=== PATIENT | female | born 1980 | race African-American/Black ===

== ENCOUNTER 2020-11-28 10:20 | Emergency (ER) | payer OTHER ==
[~2020-11-28] VITALS: Ht 165.1 cm; Wt 127.3 kg
[~2020-11-28 10:20] MED LIST: ACCU-CHEK AVIVA PLUS XX; ADVAIR DISK2 IN; ALBUTEROL S2.5 MG/.5 IN; ALBUTEROL SUL0.083 %; ALBUTEROL0.5 % IN; ALLERGY10 M1 PO; AMOXICILLIN/CL875 MG PO; ATIVAN0.5 MG PO; AUGMENTIN875TAB PO; BELVIQ10 MG; BENZONATATE200 MG PO; BUSPAR10 M1 PO; CIPRO XR500 MG PO; CLARITIN10 M2 PO; CYMBALTA60 MG PO; FLEXERIL PO; FLONASE NASAL50 MCG; FLOVENT HFA110 MCG IN; FLOVENT HFA220 MCG IN; GLUCOMETER; GLUCOMETER SC; INSULIN SC; LEVEMIR SC; LEVEMIR1000 UNITS SC; LISINOPRIL10 MG PO; LORTAB5 OR; LOVASTATIN10 M1 PO; LYRICA100 MG PO; LYRICA150 MG PO; MEDDOSEPAK PO; MIRALAX3350 NF PO; MOTRIN800 MG/TAB PO; NAPROSYN500 MG OR; NEXIUM40 M1 PO; NOVOLOG100 IU/1 M SC; NYSTATIN100000 M1 PO; PATANASE0.6 %; POLYTRIM OS; PRILOSEC40 MG PO; PROAIR HFA IN; SINGULAIR10 MG PO; TESSALON PER100 MG PO; THYROID MEDICATION; UNKNOWN ALLERGY MED; VENTOLIN HF1 IN; VENTOLIN HFA IN; ZESTRIL/PRINIV2.5 MG PO; ZESTRIL5 M1 PO; nebulizer tubing
[2020-11-28 11:44] LABS: IMMATURE GRANULOCYTES 0.2 % (0.0-5.0); MEAN CORPUSCULAR HGB 21.4 pG CALC (26.0-32.0); NEUT# 2.53 thou/uL (2.00-7.15); RED BLOOD COUNT 4.68 mill/uL (4.20-5.60); RED CELL DISTRI WIDTH 18.2 % (11.5-15.5)
[2020-11-28 11:46] LABS: HEMATOCRIT 33.3 % (37.0-47.0); MEAN CELL VOLUME 71.2 fL CALC (80.0-100.0)
[2020-11-28 11:55] LABS: ALBUMIN 3.9 g/dL (3.2-5.0); ALKALINE PHOSPHATASE 73 u/l (38-126); AMYLASE 101 u/l (30-110); ANION GAP 13 (6-22 (CALC)); BILIRUBIN, TOTAL 0.3 mg/dL (0.0-1.4); BUN 11 mg/dL (7-17); BUN/CREATININE RATIO 15 (12-20 (CALC)); CARBON DIOXIDE 23 mmol/l (22-30); CHLORIDE 106 mmol/l (95-108); CREATININE 0.8 mg/dL (0.5-1.0); ETHYL ALCOHOL 0 mg/dl (0-30); GFR > 60 ML/MIN (>=60 (CALC)); GFR FOR AFR.AMER. > 60 ML/MIN (>=60 (CALC)); LIPASE 28 u/l (23-300); POTASSIUM 4.3 mmol/l (3.5-5.1); SGOT/AST 27 u/l (14-36); SODIUM 138 mmol/l (137-146); TOTAL PROTEIN 7.9 g/dL (6.3-8.2)
[2020-11-28] MEDS ORDERED: PATANASE0.6 % (12:19)
[2020-11-28 13:31] LABS: URINE BILIRUBIN - DIPSTICK NEGATIVE (NEGATIVE); URINE BLOOD DIPSTICK NEGATIVE (NEGATIVE); URINE COLOR YELLOW; URINE GLUCOSE - DIPSTICK NEGATIVE (NEGATIVE); URINE KETONE NEGATIVE (NEGATIVE); URINE LEUK ESTERASE NEGATIVE (NEGATIVE); URINE NITRITE - DIPSTICK NEGATIVE (Negative); URINE PROTEIN - DIPSTICK NEGATIVE (NEG-TRACE)
[2020-11-28 14:21] VITALS: BP 177/62
[2020-11-28] MEDS ORDERED: XANAX0.25 MG PO (14:48)
[2020-12-27] MEDS ORDERED: DULOXETINE HCL30 MG PO (15:26)
[2020-12-27] MEDS ORDERED: INDERAL10 M1 PO (15:27)
[2020-12-27] MEDS ORDERED: LYRICA150 MG PO (15:42)
== END 2020-11-28 15:10 | disposition home or self-care (01) ==
LOC: ED 10:20
DX: F41.9 Anxiety disorder, unspecified (principal); R07.9 Chest pain, unspecified; E11.9 Type 2 diabetes mellitus without complications; I10 Essential (primary) hypertension; Z20.822 Contact with and (suspected) exposure to COVID-19
CPT/HCPCS: J2060

== ENCOUNTER 2021-07-04 19:04 | Emergency (ER) | payer OTHER ==
[~2021-07-04] VITALS: Ht 165.1 cm; Wt 118.0 kg
[~2021-07-04 19:04] MED LIST changes: +DULOXETINE HCL30 MG PO; +INDERAL10 M1 PO; +XANAX0.25 MG PO
[2021-07-04] MEDS ORDERED: THYROID MED (21:51)
[2021-07-04] MEDS ORDERED: ALLERGY MED (21:51)
[2021-07-04 23:22] VITALS: BP 121/74
== END 2021-07-04 23:22 | disposition home or self-care (01) ==
LOC: ED 19:04
DX: S00.12XA Contusion of left eyelid and periocular area, initial encounter (principal); I10 Essential (primary) hypertension; E11.9 Type 2 diabetes mellitus without complications; F41.9 Anxiety disorder, unspecified; E66.9 Obesity, unspecified; W22.09XA Striking against other stationary object, initial encounter; Y93.89 Activity, other specified; Y92.512 Supermarket, store or market as the place of occurrence of the external cause; Z98.84 Bariatric surgery status

== ENCOUNTER 2021-11-11 06:32 | Emergency (ER) | payer OTHER ==
[~2021-11-11] VITALS: Ht 165.1 cm; Wt 118.0 kg
[2021-11-11] VITALS (7 sets, daily range): BP systolic 111–122; BP diastolic 64–70
[~2021-11-11 06:32] MED LIST changes: +ALLERGY MED; +THYROID MED
[2021-11-11 07:28] LABS: URINE BILIRUBIN - DIPSTICK NEGATIVE (NEGATIVE); URINE BLOOD DIPSTICK NEGATIVE (NEGATIVE); URINE COLOR YELLOW; URINE GLUCOSE - DIPSTICK NEGATIVE (NEGATIVE); URINE KETONE NEGATIVE (NEGATIVE); URINE LEUK ESTERASE NEGATIVE (NEGATIVE); URINE PH 5.5 (4.5-8.0); URINE PROTEIN - DIPSTICK NEGATIVE (NEG-TRACE); URINE SPECIFIC GRAVITY 1.025; URINE UROBILINOGEN - DIPSTICK 0.2 E.U./dL (0.2)
[2021-11-11 07:28] LABS: HEMATOCRIT 32.3 % (37.0-47.0); HEMOGLOBIN 9.2 g/dl (12.0-16.0); IMMATURE GRANULOCYTES 0.3 % (0.0-5.0); MEAN CELL VOLUME 71.3 fL CALC (80.0-100.0); MEAN CORPUSCULAR HGB 20.3 pG CALC (26.0-32.0); MEAN CORPUSCULAR HGB CONC 28.5 g/dL CAL (32.0-36.0); NEUT# 4.57 thou/uL (2.00-7.15); RED BLOOD COUNT 4.53 mill/uL (4.20-5.60)
[2021-11-11 07:38] LABS: ALBUMIN 3.9 g/dL (3.2-5.0); ALKALINE PHOSPHATASE 77 u/l (38-126); ANION GAP 12 (6-22 (CALC)); BUN 12 mg/dL (7-17); BUN/CREATININE RATIO 16 (12-20 (CALC)); CARBON DIOXIDE 19 mmol/l (22-30); CHLORIDE 107 mmol/l (95-108); CREATININE 0.7 mg/dL (0.5-1.0); GFR FOR AFR.AMER. > 60 ML/MIN (>=60 (CALC)); GFR OTHER RACES > 60 ML/MIN (>=60 (CALC)); MAGNESIUM 1.7 mg/dL (1.6-2.3); SGOT/AST 28 u/l (14-36); SODIUM 134 mmol/l (137-146); TOTAL PROTEIN 7.5 g/dL (6.3-8.2)
[2021-11-11 07:39] LABS: URINE NITRITE - DIPSTICK NEGATIVE (Negative)
[2021-11-11 07:39] LABS: BILIRUBIN, TOTAL 0.8 mg/dL (0.0-1.4)
[2021-11-11 07:50] LABS: MYOGLOBIN 44 ng/mL (0 - 62)
[2021-11-11 08:08] LABS: TSH, 3RD GENERATION 0.41 uIU/mL (0.47 - 4.68)
[2021-11-11] MEDS ORDERED: ULTRAM50 M1 PO (08:46)
== END 2021-11-11 09:19 | disposition home or self-care (01) ==
LOC: ED 06:32
PROVIDERS: Family Medicine
DX: R51.9 Headache, unspecified (principal); M79.10 Myalgia, unspecified site; I10 Essential (primary) hypertension; E11.9 Type 2 diabetes mellitus without complications; F41.9 Anxiety disorder, unspecified; E66.9 Obesity, unspecified

== ENCOUNTER 2023-05-08 20:10 | Emergency (ER) | payer OTHER ==
[~2023-05-08] VITALS: Ht 165.1 cm; Wt 145.0 kg
[2023-05-08] VITALS (8 sets, daily range): BP systolic 122–162; BP diastolic 65–93
[~2023-05-08 20:10] MED LIST changes: +AMOCLAN400 MG/5 M PO; +MOTRIN, CH100 MG/5 M PO; +ULTRAM50 M1 PO
[2023-05-08 20:55] LABS: EOS% 2.3 % (0-8); HEMATOCRIT 30.8 % (37.0-47.0); HEMOGLOBIN 8.7 g/dl (12.0-16.0); IMMATURE GRANULOCYTES 0.2 % (0.0-5.0); MEAN CELL VOLUME 66.2 fL CALC (80.0-100.0); MEAN CORPUSCULAR HGB 18.7 pG CALC (26.0-32.0); MEAN CORPUSCULAR HGB CONC 28.2 g/dL CAL (32.0-36.0); MONO% 7.8 % (2-13); NEUT# 4.76 thou/uL (2.00-7.15); NEUT% 58.7 % (42-76); RED BLOOD COUNT 4.65 mill/uL (4.20-5.60); RED CELL DISTRI WIDTH 21.4 % (11.5-15.5)
[2023-05-08 21:02] LABS: ALKALINE PHOSPHATASE 84 u/l (38-126); ANION GAP 16 (6-22 (CALC)); BILIRUBIN, TOTAL 0.9 mg/dL (0.02-1.3); BUN 12 mg/dL (7-17); BUN/CREATININE RATIO 14 (12-20 (CALC)); CARBON DIOXIDE 20 mmol/l (22-30); CHLORIDE 106 mmol/l (95-108); CREATININE 0.8 mg/dL (0.5-1.0); D-DIMER 0.66 mg/L (0.19-0.60); GFR FOR AFR.AMER. > 60 ML/MIN (>=60 (CALC)); GFR OTHER RACES > 60 ML/MIN (>=60 (CALC)); POTASSIUM 3.7 mmol/l (3.5-5.1); SGOT/AST 35 u/l (14-36); SODIUM 139 mmol/l (137-146); TOTAL PROTEIN 8.2 g/dL (6.3-8.2)
[2023-05-08 21:03] LABS: PROTHROMBIN TIME 9.5 SECONDS (9.0-12.5)
[2023-05-08 21:05] LABS: ALBUMIN 4.4 g/dL (3.2-5.0)
[2023-05-08 21:59] LABS: URINE BILIRUBIN - DIPSTICK Negative (NEGATIVE); URINE BLOOD DIPSTICK Moderate (NEGATIVE); URINE GLUCOSE - DIPSTICK Negative (NEGATIVE); URINE KETONE Negative (NEGATIVE); URINE LEUK ESTERASE Negative (NEGATIVE); URINE NITRITE - DIPSTICK Negative (Negative); URINE PROTEIN - DIPSTICK Negative (NEG-TRACE); URINE UROBILINOGEN - DIPSTICK 0.2 E.U./dL (0.2)
[2023-05-08 22:00] LABS: URINE COLOR Yellow
[2023-05-08 22:08] LABS: URINE SQUAMOUS EPITHELIAL CELL FEW EPI/hpf (0-FEW); URINE WBC 0-2 WBC/hpf (0-5)
[2023-05-08] MEDS ORDERED: PREDNISONE20 MG PO (22:42)
== END 2023-05-08 23:05 | disposition home or self-care (01) ==
LOC: ED 20:10
PROVIDERS: Emergency Medicine
DX: J06.9 Acute upper respiratory infection, unspecified (principal); E11.9 Type 2 diabetes mellitus without complications; I10 Essential (primary) hypertension; F41.9 Anxiety disorder, unspecified; F32.A Depression, unspecified; E66.01 Morbid (severe) obesity due to excess calories; Z98.84 Bariatric surgery status; Z68.45 Body mass index [BMI] 70 or greater, adult; Z20.822 Contact with and (suspected) exposure to COVID-19